=== PATIENT | female | born 1945 | race Caucasian/White ===

== ENCOUNTER 2023-05-22 08:54 | Emergency (ER) | payer OTHER ==
[2023-05-22] MEDS ORDERED: LIDOCAINE 5% TOPICAL PATCH TP ONE (09:01)
[2023-05-22] MEDS ORDERED: ACETAMINOPHEN 500 MG TABLET (FP) PO ONE (09:01)
[2023-05-22] MEDS ORDERED: IBUPROFEN 600 MG TABLET (FP) PO ONE ×2 (09:01→09:11)
[2023-05-22] MEDS ORDERED: ACETAMINOPHEN 500 MG TABLET (FP) ONE (09:10)
[2023-05-22] MEDS ORDERED: LIDOCAINE 5% TOPICAL PATCH ONE (09:11)
[2023-05-22 09:27] VITALS: BP 165/95; PULSE 78; RESP 16; TEMP 98; BMI 20.9
[2023-05-22] MEDS ORDERED: oxyCODONE HCL 5 MG TABLET PO ONE (10:19)
[2023-05-22] MEDS ORDERED: oxyCODONE HCL 5 MG TABLET ONE (10:33)
[2023-05-22] MEDS ORDERED: LIDOCAINE PATCH REMOVAL MC ONE (22:00)
== END 2023-05-22 10:56 | disposition home or self-care (01) ==
LOC: FER 08:54
DX: S22.31XA Fracture of one rib, right side, initial encounter for closed fracture (principal); R91.1 Solitary pulmonary nodule; R07.81 Pleurodynia; W07.XXXA Fall from chair, initial encounter; Y93.89 Activity, other specified; Y92.9 Unspecified place or not applicable
CPT/HCPCS: 70450-TC; 71250-TC; 72125-TC; 99284-25